=== PATIENT | male | born 1965 | race Caucasian/White ===

== ENCOUNTER 2023-12-05 12:58 | Inpatient (IN) | payer OTHER, SELFPAY ==
[2023-12-05] VITALS (12 sets, daily range): BP systolic 110–152; BP diastolic 68–94; BMI 32.5
[2023-12-05] MEDS: NSS 299 ML IV (10:29)
--- NOTE | 2023-12-05 10:55 | W.PN.CARDCBS ---
Today's Communication / Plan
-
Cath today- atherectomy/stenting of RCA
get echo results from [facility]
cardiac rehab
CM consult for brilinta, med costs
Impression / Plan
-
PCP: RITCHIE Melchor
CDY: None prior to admission, new to [facility] Valenzuela [facility]
HPI: This is a 58 y/o obese white male, 40pyh tobacco abuse, drinks 3-6 beers/6-7x a week, prior HLD and took statin briefly but stopped on his own, has not seen a doctor in at least 3 years. ETOH level was 0.13 on admission.
Presented to [facility] ER with 3 hours acute onset prolonged chest pain, no other associated symptoms. EKG with acute inferior ST elevations and STEMI alert was called. Emergent cath revealed heavily calcified prox RCA 100% occlusion with 80% mid RCA,
30-40% mid LAD occlusion, and 50% prox OM2 stenosis. Successful angioplasty after multiple attempts with multiple balloons but unable to pass a stent. Final angiography with residual 80% prox/mid RCA stenosis. His symptoms improved and he was
started on heparin and dapt with asa/brilinta. HS troponin peak 1259. Echo performed at [facility] but results not on transfer chart.
He is transferred today for RCA atherectomy and stent.
IMPRESSION/PLAN:
Inferior STEMI
s/p prox RCA angioplasty with unsuccessful stenting to highly calcified lesion (12/02/23)
Plan for atherectomy and stenting today
residual CAD in LAD, OM2- for medical management
DAPT w/asa, brilinta- started at [facility] and doses given today- will have CM check brilinta cost
new start metoprolol xl 25/d- tolerating at this time and will continue
will add ACEI post procedure today
echo done at [facility]- will attempt to get records
cardiac rehab consult
to follow with [facility]/Dr. Valenzuela at discharge
HLD- prior statin use
restarted on atorvastatin 80/d
check lipid profile
Elevated glucose- was 150 on initial labs
will check HgbA1C in AM
ETOH/Tobacco abuse- MUST stop all
nicoderm patch started
thiamine, folic acid, Vit B complex started
start MSAS while here
may need ativan/xanax for withdraw symptoms if any
Medical Noncompliance- importance of taking meds, stopping etoh/tobacco stressed with patient
to follow with cardiology in 2-3 weeks and PCP in 4-6 weeks.
Progress Note - [employer]
Subjective
Date of Service: December 05, 2023
Objective
Vital Signs and I&O:
Vital Signs
Temp Pulse Resp BP Pulse Ox
98.0 F 57 16 120/81 99
12/05/23 10:12/05/23 10:12/05/23 10:12/05/23 10:09 12/05/23 10:09
Vital Signs
Temp Pulse Resp BP Pulse Ox
98.0 F 57 16 120/81 99
12/05/23 10:09 12/05/23 10:09 12/05/23 10:09 12/05/23 10:09 12/05/23 10:09
Physical Exam
Physical Exam
AAOx3, MAEE 5/5
RRR S1 S2 no murmurs
Decreased bibasilar, non labored
soft obese abd, + bs
bilat extremities w/palpable distal pulses, no edema
[2023-12-05 11:41] LABS: ACT-LR - POC 326 Seconds (116-155)
[2023-12-05 12:36] LABS: ACT-LR - POC 221 Seconds (116-155)
--- NOTE | 2023-12-05 13:02 | ITS.CL.ANGIO ---
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
Angioplasty
Procedure Report:
CARDIAC CATHETERIZATION REPORT
Date of Procedure: 12/05/2023
Referring: Alexander Collazo M.D.
INDICATION: Staged PCI for densely calcified right coronary artery lesion after successful PTCA of STEMI.
PROCEDURE:
1. Successful placement of a temporary pacemaker in the right ventricle.
2. Angiography of the right coronary artery.
3. Successful orbital atherectomy of the proximal and mid right coronary artery.
4. Successful supplemental coronary lithotripsy.
5. Successful PCI of the mid and proximal right coronary artery.
ACCESS:
6 Andorran left common femoral artery using a modified Seldinger technique with a micropuncture kit under ultrasound guidance.
6 Andorran right common femoral vein using modified Seldinger technique with a micropuncture kit under ultrasound guidance.
CATHETERS:
1. 6 Andorran temporary pacemaker.
2. 6 Andorran AL 0.75 guiding catheter.
HEMODYNAMIC DATA
Weight (kg): 99.8
AO (s/d/x, mmHg): 123/66/88
LV (s/x mmHg): Not obtained.
LEFT VENTRICULOGRAPHY: Not performed.
CORONARY ANGIOGRAPHY
Dominance: Right.
Left Main: Not injected.
LAD: Not injected.
Ramus: Not injected.
Circumflex: Not injected.
RCA: Large size, dominant vessel with a large posterolateral arcade. There are 2, densely calcified 80% lesions, 1 in the proximal vessel and the other in the mid vessel.
INTERVENTION(S)
1. Successful placement of a temporary pacemaker in the right ventricle.
2. Successful CSI diamondback orbital atherectomy of the proximal and mid RCA.
3. Successful supplemental intracoronary lithotripsy of both lesions (4.0 x 12 shockwave balloon).
4. Successful PCI of the tandem 80% proximal and mid RCA lesions (Xience Skypoint 4.0 x 38 PATRICK, postdilated with a 5.0 NC balloon) with reduction in stenosis to 0%, maintaining JAMISON-3 flow.
Narrative:
The decision was made to proceed with percutaneous coronary intervention. A 6Fr AL 0.75 guiding catheter was advanced to the aortic root and seated in the right coronary artery. Additional heparin was given and a Power Turn Flex wire was advanced
into the distal RCA, accompanied by a quick cross microcatheter. The power turn flex wire was withdrawn and exchanged for a Viper wire. The quick cross microcatheter was removed.
The CSI orbital atherectomy device was prepped on the back table and flushed with Viper slide. The device was loaded onto the Viper wire and brought up to the level of the catheter. An out of body test was successful. The CSI device was advanced
over the Viper wire up to the level of the coronary artery. Once the crown was positioned in place, orbital atherectomy was performed in the standard fashion with slow smooth passes. Brief angiography was performed to rule out dissection and
perforation. The process was repeated 5 times. Ultimately, the crown passed through the densely calcified lesion. The CSI device was withdrawn over the Viper wire.
The cross microcatheter was readvanced over the Viper wire and into the distal RCA. The Viper wire was removed and the power turn flex wire was readvanced into the distal RCA. The quick cross catheter was then removed using a wire pinning
technique.
Given the size of the vessel, the decision was made to perform supplemental intracoronary lithotripsy. A Shockwave 4.0 x 12 coronary lithotripsy balloon was advanced over the wire and into the proximal RCA lesion. Unfortunately, the catheter would
not advance into the more distal lesion. The balloon was sterilely connected to the controller and prepped to negative pressure. Meticulous care was taken while positioning the shockwave balloon. Once in satisfactory position, the balloon was
inflated to 4 suzette. After confirming good contact with the vessel wall, 10 pulses were delivered. After delivering 10 pulses, the balloon was inflated to 6 suzette then deflated. The entire lesion was treated in a similar manner for total of 4 rounds.
The shockwave balloon was removed and a Xience Skypoint 4.0 x 38 drug-eluting stent was advanced. Unfortunately, the stent would not pass beyond the distal 80% mid RCA lesion. The stent was withdrawn. A 6 Andorran guide liner was advanced over a
3.5 x 15 noncompliant balloon. The distal lesion was predilated to 12 suzette. Using the noncompliant balloon is an anchor, the guide liner was advanced into the more distal lesion. When the balloon was deflated, the GuideLiner was advanced into the
distal RCA using a sheeting technique. The noncompliant balloon was removed and the shockwave balloon was readvanced into the more distal RCA using the GuideLiner. The distal 80% lesion was treated with 3 rounds of intracoronary lithotripsy. The
shockwave balloon was withdrawn. Keeping the GuideLiner in place, the stent was readvanced, this time passing easily into the more distal vessel.
Meticulous care was taken while positioning the stent, withdrawing the GuideLiner and the guide into the very proximal vessel, nearly into the aorta. Once we were satisfied that the stent was covering both lesions in their entirety, the stent was
deployed at 12 atmospheres. The stent balloon was removed. A 5.0 x 20 NC balloon was advanced, but had difficulty crossing the stent lip into the vessel. At 1 point, access to the vessel was lost. Once we reestablished catheter and wire access, a
4.0 x 12 noncompliant balloon was advanced, passing into the distal stent with relative ease. The distal stent was postdilated to 12 suzette. Again, using the noncompliant balloon as an anchor, the guide liner was advanced into the mid vessel. The
noncompliant balloon was deflated and withdrawn. The 5.0 x 20 noncompliant balloon was readvanced through the GuideLiner and into the distal vessel. The stent was postdilated to 12 atmospheres. Angiography was performed in orthogonal views,
confirming good stent expansion and an excellent angiographic result. The coronary wire was withdrawn and the guide was disengaged from the artery. The catheter was removed over a standard J-wire.
Closure Device: 6 Andorran Angio-Seal for the left common femoral artery, manual pressure for the right common femoral vein.
Radiation (mGy): 1024.96
DAP (cm2.Gy): 96.7539
Fluoroscopy time (minutes): 23.5
Sedation time (minutes): 89
CONCLUSIONS
1. Right dominant circulation with densely calcified, tandem 80% proximal and mid RCA lesions status post successful orbital atherectomy, supplemental intracoronary lithotripsy and PCI (Xience Skypoint 4.0 x 38 PATRICK, postdilated with a 5.0 NC
balloon) with reduction in stenosis to 0%, maintaining JAMISON-3 flow.
RECOMMENDATIONS:
1. Expectant management after cardiac catheterization via left common femoral approach.
2. Limited weight bearing for one week.
3. Dual antiplatelet therapy with aspirin and ticagrelor for at least 12 months, followed by aspirin indefinitely.
4. Guideline directed medical therapy as hemodynamics tolerate.
5. Aggressive secondary prevention including high-dose, high potency statin.
6. Echocardiogram ordered and pending.
7. Referral to cardiac rehab.
Copy to: Alexander Colalzo M.D., Karen Infante PA-C, Mario Valenzuela M.D.
Luis F Moore, , FACC, FACP
[2023-12-05 14:48] LABS: ACT-LR - POC > 397 Seconds (116-155)
--- NOTE | 2023-12-05 15:47 | PTCARENOTE ---
Rec'd pt this shift awake and alert from supervisor labor gang. Pt with Rt and left groin dsg intact, no bleeding, no hematoma. VS done and groin checks done as per protocol. Pt on RFA, SB on monitor. Pulse ox 99%. See worklist for VS/I and O and assessments.
--- NOTE | 2023-12-05 15:52 | CM ---
CM following for DC planning needs.
Met w/ patient at bedside to complete initial assessment. Pt. transferred from [facility].
Pt. resides alone in a private home. He is functionally indep. w/ ADLs, mobility without the use of any assisted device. 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 Pt. is uninsured. [facility] has met with patient and notified him of what he needs
to bring to apply for MA.
Pt. has no RX plan and uses [facility] in [place] for prescription needs.
Anticipated DC plan is for home, no needs.
Will cont. to follow.
--- NOTE | 2023-12-05 15:54 | CM ---
Rec'd consult to george Ryan. Confirmed that patient has no medical insurance, therefore pays [facility]z for his Rx.
TT to EM to update.
--- NOTE | 2023-12-05 17:06 | PTCARENOTE ---
Pt OOB up in chair, ambulating in room with no difficulties.
[2023-12-05] MEDS: LIPITOR 80 MG PO (18:06)
[2023-12-05] MEDS: BRILINTA 90 MG PO (19:56)
--- NOTE | 2023-12-05 20:00 | PTCARENOTE ---
Received pt from [facility]; pt is resting comfortably in chair; pt is s/p cardiac stent, and is now ambulatory; pt is AAOx4 and denies pain; pt is SB on monitor, VSS; heart sounds audible, radial and DP pulses palpable, no edema noted; lungs are CTA,
spo2 is 95% on RA; + BS x4 quadrants, abdomen soft non tender; pt voiding clear yellow urine; right and left femoral access sites have dressings that are CDI; right and left PIVs maintained; call avalos within reach; will continue to monitor.
[2023-12-06 00:30] VITALS: BP 97/58
--- NOTE | 2023-12-06 00:30 | PTCARENOTE ---
Pt assessment unchanged; pt resting comfortably in bed; NSR on monitor, VSS; call avalos within reach, will continue to monitor.
[2023-12-06 03:30] VITALS: BP 103/66
--- NOTE | 2023-12-06 04:00 | PTCARENOTE ---
Pt assessment unchanged; pt resting comfortably in bed. SB on monitor, VSS; labs and EKG obtained; call avalos within reach; will continue to monitor
[2023-12-06 04:26] LABS: Hemoglobin 14.1 g/dL (13.0-18.0); Mean Corp Hgb Conc. 36.2 g/dL (33.0-37.0); Mean Corpuscular Hgb 31.7 pg (27.0-31.0); Mean Corpuscular Volume 87.6 fL (80.0-94.0); Mean Platelet Volume 9.1 fL (7.4-10.4); Platelet Count 168 10^3/uL (130-400); Red Blood Cell Count 4.45 10^6/uL (4.70-6.10); White Blood Cell Count 6.7 10^3/uL (4.8-10.8)
[2023-12-06 04:55] LABS: Blood Urea Nitrogen 10 mg/dl (9-20); Carbon Dioxide 24 mmol/L (22-30); Chloride 106 mmol/L (98-107); Estimated Creatinine Clearance 119 ml/min; Glucose 89 mg/dl (70-99); HDL Cholesterol 52 mg/dl; LDL Cholesterol, Calculated 75 mg/dl; Potassium 4.1 mmol/L (3.5-5.1); Sodium 138 mmol/L (135-145); Total Cholesterol 162 mg/dl (50-199); Triglyceride 177 mg/dl (10-149); Very Low Density Lipoprotein 35 mg/dl (0-30); eGFR > 60.00
[2023-12-06] MEDS: PLAVIX 600 MG PO (05:43)
[2023-12-06 07:54] VITALS: BP 100/61
[2023-12-06 07:57] LABS: Glucose - Point of Care 100 mg/dl (70-99)
[2023-12-06] MEDS: VITAMIN B1 100 MG PO (08:06)
[2023-12-06] MEDS: ZESTRIL 2.5 MG PO (08:06)
[2023-12-06] MEDS: TOPROL XL 25 MG PO (08:06)
[2023-12-06] MEDS: FOLVITE 1 MG PO (08:07)
[2023-12-06] MEDS: PROTONIX 40 MG PO (08:07)
[2023-12-06] MEDS: LOW STRENGTH ASPIRIN 81 MG PO (08:07)
[2023-12-06] MEDS: REFRESH EYE DROPS (PF) 1 DROPS OPHTH (08:52)
--- NOTE | 2023-12-06 09:02 | W.PN.CARDCBS ---
Addendum entered and electronically signed by Chavez Carrillo MD 12/06/23 09:43:
58 yo male with presentation of inferior STEMI at [facility] 12/01. Heavily calcified lesion--opened with balloon, but unable to stent. Transferred here for complex PCI 12/04 of RCA. Doing well. No chest pain. Exam with RRR, no murmurs, no edema. Tele:
NSR 60s, no arrhythmia.
DAPT, beta derek, ACEi.
Echo today. Discharge planning.
Original Note:
Today's Communication / Plan
-
post Arthrectomy/shockwave PCI RCA
DAPT ASA/Plavix
Cardiac rehab c/s
f/u [facility] cards
Impression / Plan
-
PCP: RITCHIE Melchor
CDY: None prior to admission, new to Mario Valenzuela MD/[facility]
HPI: This is a 58 y/o obese white male, 40pyh tobacco abuse, drinks 3-6 beers/6-7x a week, prior HLD and took statin briefly but stopped on his own, has not seen a doctor in at least 3 years. ETOH level was 0.13 on admission.
Presented to [facility] ER with 3 hours acute onset prolonged chest pain, no other associated symptoms. EKG with acute inferior ST elevations and STEMI alert was called. Emergent cath revealed heavily calcified prox RCA 100% occlusion with 80% mid RCA,
30-40% mid LAD occlusion, and 50% prox OM2 stenosis. Successful angioplasty after multiple attempts with multiple balloons but unable to pass a stent. Final angiography with residual 80% prox/mid RCA stenosis. His symptoms improved and he was
started on heparin and dapt with asa/brilinta. HS troponin peak 1259. Echo performed at [facility] but results not on transfer chart.
He is transferred today for RCA atherectomy and stent.
12/05/23 [facility]
1. Right dominant circulation with densely calcified, tandem 80% proximal and mid RCA lesions status post successful orbital atherectomy, supplemental intracoronary lithotripsy and PCI (Xience Skypoint 4.0 x 38 PATRICK, postdilated with a 5.0 NC
balloon) with reduction in stenosis to 0%, maintaining JAMISON-3 flow.
IMPRESSION/PLAN:
Inferior STEMI
s/p prox RCA angioplasty with unsuccessful stenting to highly calcified lesion (12/02/23)
Post CSI/Shockwave and stent to prox and mid RCA x1 PATRICK
residual CAD in LAD, OM2- for medical management
DAPT w/asa, loaded with plavix this am, he does not have insurance to afford Brilinta
continue metoprolol xl 25/d- tolerating at this time
new start to lisinopril 2.5mg today
echo done at [facility]- will attempt to get records
cardiac rehab consult
to follow with [facility]/Dr. Valenzuela at discharge
Left eye conjunctivitis - has been having for over a week [employer], slightly blurry vision, will order artificial tears and cold compresses
f/u PCP if worsens
HLD- prior statin use
restarted on atorvastatin 80/d
LDL 75 goal <55
Elevated glucose- was 150 on initial labs
HgbA1C pending
ETOH/Tobacco abuse- MUST stop all
nicoderm patch started
thiamine, folic acid, Vit B complex started
MSAS while here
may need ativan/xanax for withdraw symptoms if any
Medical Noncompliance- importance of taking meds, stopping etoh/tobacco stressed with patient
to follow with cardiology in 2-3 weeks and PCP in 4-6 weeks.
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
Subjective
Date of Service: December 06, 2023
no cp, sob
Objective
Labs:
12/06/23 03:56
12/06/23 03:56
Labs
Hgb 14.1 g/dL (13.0-18.0) 12/06/23 03:56
Hct 39.0 % (39.0-52.0) 12/06/23 03:56
Plt Count 168 10^3/uL (130-400) 12/06/23 03:56
Sodium 138 mmol/L (135-145) 12/06/23 03:56
Potassium 4.1 mmol/L (3.5-5.1) 12/06/23 03:56
BUN 10 mg/dl (9-20) 12/06/23 03:56
Creatinine 0.8 mg/dL (0.7-1.3) 12/06/23 03:56
Glucose 89 mg/dl (70-99) 12/06/23 03:56
Vital Signs and I&O:
Vital Signs
Temp Pulse Resp BP Pulse Ox
97.6 F 64 18 100/61 96
12/06/23 07:54 12/06/23 08:00 12/06/23 07:54 12/06/23 07:54 12/06/23 07:54
Vital Signs
Temp Pulse Resp BP Pulse Ox
97.6 F 64 18 100/61 96
12/06/23 07:54 12/06/23 08:00 12/06/23 07:54 12/06/23 07:54 12/06/23 07:54
Intake & Output
12/04/23 12/05/23 12/06/23 12/07/23
06:59 06:59 06:59 06:59
Intake Total 1500 / 1500
Output Total 400 / 400
Balance 1100 / 1100
Physical Exam
Physical Exam
NAD, AOX3
irritated L eye sclera
S1, S2, RRR
CTAB<non labored, no wheeze
SNTND bsx4
R fem site c/d/i, soft, mod ecchymosis, no HT
--- NOTE | 2023-12-06 09:54 | PTCARENOTE ---
Assumed care of pt from night RN. Pt received awake and alert, Ox3. VSS, CM shows NSR 60's, POX 96% on RA. Bilateral groin sites appear CDI with normal CMS throughout lower extremities. Pt refused his Nicoderm patch. He c/o left eye pain. Left
eye reddened and swollen. Lubricating drop administered as ordered. Pt remains 0 on MSAS scale. Pt ambulating in room,offers no c/o chest discomfort, will continue to monitor closely.
[2023-12-06 10:09] LABS: Glycohemoglobin (HgbA1c) 5.5 % (4.0-5.6)
[2023-12-06 11:51] VITALS: BP 102/72
[2023-12-06 12:24] LABS: Glucose - Point of Care 118 mg/dl (70-99)
--- NOTE | 2023-12-06 12:54 | CM ---
Addendum entered by PAUL Mckinley 12/06/23 13:54:
Pt. for DC today. Noted new RX, all generic.
Printed out coupons from [employer] for all medications. Reviewed w/ pt. and RN.
No other identified needs.
Original Note:
CM following for DC planning needs.
Pt. is uninsured; will need generic meds at DC.
No other needs anticipated.
CM to follow.
--- NOTE | 2023-12-06 13:54 | W.DS.TRANS ---
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
-
Discharge Instructions:
Discharge Diagnosis/Procedures STEMI, s/p atherectomy, lithotripsy with
angioplasty and stent to Right Coronary artery
Diet Low Cholesterol
Activity No strenuous activity
Additional Activity For 1 week
Driving Restrictions No driving for 24 hours
Other Services Cardiac Rehab
Instructions:
Stand-Alone Forms: DC Instructions- Cath/EP Lab
Changes to Home Medications: Yes
Discharge Medications:
DC Medications w/original date entered in [employer]
aspirin 81 mg chewable tablet (Children's Aspirin) 81 mg PO DAILY #1 tab 12/06/23
atorvastatin 80 mg tablet 80 mg PO QPM #90 tabs 12/06/23
clopidogrel 75 mg tablet 75 mg PO DAILY #90 tabs 12/06/23
lisinopril 2.5 mg tablet 2.5 mg PO DAILY #90 tabs 12/06/23
metoprolol succinate 25 mg tablet,extended release 24 hr 25 mg PO DAILY #90 tabs 12/06/23
nitroglycerin 0.4 mg sublingual tablet 0.4 mg sublingual [id number] PRN chest pain #25 tabs 12/06/23
Home Medication Changes
all new meds
Pending Results: No
--- NOTE | 2023-12-06 15:18 | PTCARENOTE ---
All D/C info reviewed with pt, all questions answered. Pt d/c'd home with friend.
== END 2023-12-06 15:19 | disposition home or self-care (01) | DRG 324 ==
LOC: IVU 12:58
PROVIDERS: Nurse Practitioner; ADMITTING PHYSICIAN Internal Medicine Cardiovascular Disease; FAMILY PHYSICIAN Physician Assistant
PROC: 5A1223Z Performance of Cardiac Pacing, Continuous (ICD-10-PCS; 2023-12-05)
PROC: 02C03Z7 Extirpation of Matter from Coronary Artery, One Artery, Orbital Atherectomy Technique, Percutaneous Approach (ICD-10-PCS; 2023-12-05)
PROC: B2101ZZ Fluoroscopy of Single Coronary Artery using Low Osmolar Contrast (ICD-10-PCS; 2023-12-05)
PROC: 027034Z Dilation of Coronary Artery, One Artery with Drug-eluting Intraluminal Device, Percutaneous Approach (ICD-10-PCS; 2023-12-05)
PROC: 02F03ZZ Fragmentation in Coronary Artery, One Artery, Percutaneous Approach (ICD-10-PCS; 2023-12-05)
DX: I21.19 ST elevation (STEMI) myocardial infarction involving other coronary artery of inferior wall (principal); F17.200 Nicotine dependence, unspecified, uncomplicated; E66.9 Obesity, unspecified; E78.5 Hyperlipidemia, unspecified; I25.82 Chronic total occlusion of coronary artery; I25.10 Atherosclerotic heart disease of native coronary artery without angina pectoris; R73.9 Hyperglycemia, unspecified; F10.10 Alcohol abuse, uncomplicated; Y90.0 Blood alcohol level of less than 20 mg/100 ml; Z68.32 Body mass index [BMI] 32.0-32.9, adult; Z91.199 Patient's noncompliance with other medical treatment and regimen due to unspecified reason; Z59.7 Insufficient social insurance and welfare support
CPT/HCPCS: 33210; 80048; 80061; 82962; 83036; 85027; 85347; 87070; 92924; 92972; 93005; 93306; 99406; C1724; C1725; C1760; C1874; C1887; C1894; C9602; Q9967